=== PATIENT | female | born 2000 | race Caucasian/White ===

== ENCOUNTER 2023-02-28 20:54 | Emergency (ER) | payer SELFPAY ==
[~2023-02-28] VITALS: Ht 170.2 cm; Wt 100.0 kg
[2023-02-28 21:11] VITALS: O2SAT 99
[2023-03-01 02:39] VITALS: BP 139/91; PULSE 81; RESP 18; TEMP 98
[2023-03-01] MEDS ORDERED: HYDR-3735 MT (05:19)
[2023-03-01] MEDS ORDERED: LORAZEPAM 1MG TABLET PO ONE (05:30)
== END 2023-03-01 06:30 | disposition home or self-care (01) ==
LOC: EDBD 20:54 → ER 20:54
DX: F41.9 Anxiety disorder, unspecified (principal); R07.89 Other chest pain
CPT/HCPCS: 71045; 93005; 99283